=== PATIENT | female | born 1995 | race Hispanic/Latino ===

== ENCOUNTER 2019-10-04 16:35 | Emergency (ER) | payer OTHER ==
[~2019-10-04] VITALS: Ht 154.9 cm; Wt 76.7 kg
--- OUTSIDE RECORDS SUMMARY | 2019-10-04 16:37 | XMS REPORT | Summary of Care ---
Author Author CARLOS MILLER M.D. Organization Unknown Address [facility] Phone Unavailable Care Team Providers Care Parcel Post Officer Name Role Phone AMIRA NAGEL M.D. Unavailable Unavailable CARLOS MILLER M.D. Unavailable Unavailable EDUCATION, POST Unavailable Unavailable Unavailable Unavailable Functional Status Name Dates Details Functional status health issues are not documented Status: Name Dates Details Cognitive status health issues are not documented Status: Problems Name Dates Details Never smoked Status: Active History of Does not drink alcohol (V49.89, Z78.9) Status: Resolved Encounter for supervision of normal (V22.1, Z34.90) Status: Active History of delivery, currently (V23.41, O09.219) Status: Active (V22.2, Z34.90) Status: Active Late care (V23.7, O09.30) Status: Active Medications Name Dates Details Fluconazole 150 MG Oral Tablet TAKE 1 TABLET DAILY. Quantity: 7 AMIRA NAGEL M.D. * Start : 29-Dec-2014 Active CitraNatal 90 DHA 90-1 & 300 MG Oral TAKE 1 TABLET DAILY * Quantity: 90 Refills: 3 CARLOS MILLER M.D. * Start : 09-Jan-2018 Active Allergies and Adverse Reactions Name Dates Details No Known Allergies (Allergy) Status: Active Procedures Procedure Dates Details Procedures not documented Immunization Name Dates Details Immunizations not documented Social History Name Dates Details - Status: Name Dates Details Never smoker Never smoker Vital Signs Date Test Result Details No Known Vitals to report Results Date Description Value Details Results not documented Plan of Care Name Dates Details Planned Observations Planned Goals not documented Instructions Name Dates Details Instructions not documented Encounters Appointment; CARLOS MILLER M.D. Encounter Diagnosis: Problem not documented On: 09-Jan-2018 8:00 Appointment; TYPING SECTION CHIEF, COUNSELOR Encounter Diagnosis: Problem not documented On: 13-Jan-2018 9:00 Appointment; TYPING SECTION CHIEF, ROOM1 Encounter Diagnosis: Problem not documented On: 13-Jan-2018 10:00 Appointment; ASIA IVORY M.D. Encounter Diagnosis: Problem not documented On: 06-Feb-2018 15:15 Appointment; STEPHANIE MCCORMICK M.D. Encounter Diagnosis: Problem not documented On: 13-Feb-2018 15:15 Appointment; MANJINDER REYNOLDS M.D. Encounter Diagnosis: Problem not documented On: 01-Mar-2018 9:00 Appointment; EDUCATION, POST Encounter Diagnosis: Problem not documented On: 17-Apr-2018 11:00
--- OUTSIDE RECORDS SUMMARY | 2019-10-04 16:37 | XMS REPORT ---
Author Author [facility] Address Unknown Phone Unavailable Care Team Providers Care Highway Administrative Engineer Name Role Phone Unavailable Unavailable Payers Payer Name Policy Type Policy Number Effective Date Expiration Date Problems This patient has no known problems. Allergies, Adverse Reactions, Alerts Allergy Name Allergy Type Status Severity Reaction(s) Onset Date Inactive Date Treating Clinician Comments No Known Allergies DA Active U 2016-10-20 00:00:00 Medications This patient has no known medications.
[2019-10-04 17:55] VITALS: BP 120/61
[2019-10-05] MEDS ORDERED: DIAZEPAM INJ 5 MG/ML 2 ML ONE (04:59)
== END 2019-10-04 17:56 | disposition home or self-care (01) ==
LOC: FSED 16:35
DX: J03.00 Acute streptococcal tonsillitis, unspecified (principal)
CPT/HCPCS: 83518; 99283

== ENCOUNTER 2020-10-12 17:55 | Emergency (ER) | payer OTHER ==
[~2020-10-12] VITALS: Ht 154.9 cm; Wt 67.7 kg
--- NOTE | 2020-10-12 18:12 | Emergency Department Note ---
History of Present Illnes History of Present Illness Chief Complaint: Eye, Ear, Nose, Throat, Dental History of Present Illness This is a 24 year old female Chief Complaint Comment Reports that since last night she has had a headache that feels like pressure, swollen tonsils and feels like someone is sticking a needle through both ear drums. . Historian: Patient Arrival Mode: Car Onset (how long ago): day(s) (2) Location: SORE THROAT Quality: DULL Radiation: Denies non-radiation, Denies back, Denies neck, Denies extremity, Denies abdomen, Denies periumbilical, Denies flank, Denies proximal, Denies distal, Denies other Severity: mild Onset quality: gradual Duration (how long): day(s) (2) Timing of current episode: constant Progression: unchanged Chronicity: new Context: Denies recent illness, Denies recent surgery, Denies recent immobilization, Denies recent travel, Denies trauma/injury, Denies new medi cations, Denies hx of DVT/PE, Denies non-compliance w/ medications, Denies other Relieving factors: none Exacerbating factors: none Associated symptoms: Denies denies other symptoms, Denies confusion, Denies chest pain, Denies cough, Denies diaphoresis, Denies fever/chills, Denies headaches, Denies loss of appetite, Denies malaise, Denies nausea/vomiting, Denies rash, Denies seizure, Denies shortness of breath, Denies syncope, Denies weakness, Denies other Treatments prior to arrival: none Past Medical/Family History Physician Review I have reviewed the patient's past medical and family history. Any updates have been documented here. Past Medical History Recent Fever: No Clinical Suspicion of Infectio: No New/Unexplained Change in Ment: No Past Medical History: None Other Medical History: 30 WEEKS Past Surgical History: None Social History Smoking Cessation: Current some day smoker Counseling Performed: Yes Alcohol Use: None Any Illegal Drug Use: Yes Physically hurt or threatened: No Other Last Tetanus: UNKNOWN Any Pre-Existing Lines (PICC,: No Review of Systems Review of Systems Constitutional: Reports no symptoms EENTM: Reports as per HPI Cardiovascular: Reports no symptoms Respiratory: Reports no symptoms; Denies as per HPI, Denies change in phlegm color, Denies chest congestion, Denies cough, Denies hemoptysis, Denies excessive phlegm production, Denies pain on inspiration, Denies pain with cough, Denies dyspnea, Denies dyspnea on exertion, Denies snoring, Denies stridor, Denies wheezing, Denies other Gastrointestinal: Reports no symptoms Genitourinary: Reports no symptoms Musculoskeletal: Reports no symptoms; Denies as per HPI, Denies back pain, Denies gout, Denies joint pain, Denies joint swelling, Denies muscle pain, Denies muscle stiffness, Denies neck pain, Denies other Integumentary: Reports no symptoms Neurological: Reports no symptoms Psychological: Reports no symptoms Endocrine: Reports no symptoms Hematological/Lymphatic: Reports no symptoms Physical Exam Related Data Allergies: Coded Allergies: No Known Allergies (Unverified , 10/04/19) Triage Vital Signs Vital Signs Date Time Temp Pulse Resp B/P (MAP) Pulse Ox O2 Delivery O2 Flow Rate FiO2 10/12/20 18:00 98.1 80 16 112/76 100 Room Air Vital signs reviewed: Yes Physical Exam CONSTITUTIONAL Constitutional: Present well-developed, Present well-nourished HENT HENT: Present normocephalic, Present atraumatic, Present oropharynx clear/moist, Present nose normal, Present tonsillar excudate HENT L/R: Present left ext ear normal, Present right ext ear normal EYES Eyes: Reports PERRL, Reports conjunctivae normal NECK Neck: Present ROM normal PULMONARY Pulmonary: Present effort normal, Present breath sounds normal CARDIOVASCULAR Cardiovascular: Present regular rhythm, Present heart sounds normal, Present capillary refill normal, Present normal rate GASTROINTESTINAL Abdominal: Present soft, Present nontender, Present bowel sounds normal GENITOURINARY Genitourinary: Present exam deferred SKIN Skin: Present warm, Present dry MUSCULOSKELETAL Musculoskeletal: Present ROM normal NEUROLOGICAL Neurological: Present alert, Present oriented x 3, Present no gross motor or sensory deficits PSYCHOLOGICAL Psychological: Present mood/affect normal, Present judgement normal Results Laboratory Lab results reviewed: Yes Assessment & Plan Medical Decision Making MDM TONSILLITIS PHARYNGITIS Reassessment Reassessment BETTER Assessment & Plan Final Impression: (1) Acute tonsillitis (2) Acute pharyngitis Depart Disposition: HOME, SELF-CARE Last Vital Signs Date Time Temp Pulse Resp B/P (MAP) Pulse Ox O2 Delivery O2 Flow Rate FiO2 10/12/20 18:00 98.1 80 16 112/76 100 Room Air Home Meds Active Scripts Amoxicillin/Potassium Clav (AUGMENTIN 500-125 TABLET) 1 Each Tablet, 500 MG PO TID, #21 TAB Prov:SUDEEP ARIAS MD 10/12/20 SUDEEP ARIAS MD Oct 12, 2020 18:12
[2020-10-12] MEDS ORDERED: AUGMENTIN 500-1 EACH PO (18:14)
[2020-10-12] MEDS ORDERED: CEFTRIAXONE SOD 1 GM VIAL IM ONE (18:15)
--- OUTSIDE RECORDS SUMMARY | 2020-10-12 18:52 | XMS REPORT | Continuity of Care Document ---
Author Author [facility] t Organization [facility] Address [address] [place] [address] Phone Unavailable Care Team Providers Care Pneumatic Riveter Name Role Phone AYANA DHILLON MD PCP EDUCATION, POST Attphys Unavailable MANJINDER REYNOLDS M.D. Attphys Unavailable STEPHANIE MCCORMICK M.D. Attphys Unavailable ASIA IVORY M.D. Attphys Unavailable SCALER, ROOM1 Attphys Unavailable SCALER, COUNSELOR Attphys Unavailable CARLOS MILLER M.D. Attphys Unavailable Payers Payer Name Policy Type Policy Number Effective Date Expiration Date S ource Problems Condition Name Condition Details Condition Category Status Onset Date Resolution Date Last Treatment Date Treating Clinician Comments Source History of Does not drink alcohol History of Does not drink alcohol Problem HL7.CCDAR2 Resolved [facility] Never smoked Never smoked Problem HL7.CCDAR2 Active [facility] Problem HL7.CCDAR2 Active [facility] Encounter for supervision of normal Encounte r for supervision of normal Problem HL7.CCDAR2 Active [facility] History of delivery, currently Histor y of delivery, currently Problem HL7.CCDAR2 Active [facility] Late care Late care Problem HL7.CCDAR2 Active [facility] Allergies, Adverse Reactions, Alerts Allergy Name Allergy Type Status Severity Reaction(s) Onset Date Inacti ve Date Treating Clinician Comments Source No Known Allergies DA Active U 2020-02-17 00:00:00 [facility] No Known Allergies DA Active U 2020-02-10 00:00:00 [facility] No Known Allergies DA Active U 2016-10-20 00:00:00 [facility] Social History Smoking Status Start Date Stop Date Source Never smoker [facility] Medications Ordered Medication Name Filled Medication Name Start Date Stop Da te Current Medication? Ordering Clinician Indication Dosage Frequency Signature (SIG) Comments Components Source CitraNatal 90 DHA 90-1 & 300 MG Oral CitraNatal 90 DHA 90-1 & 300 MG Oral 2018-01-09 00:00:00 Yes CARLOS MILLER M.D. 1 QD TAKE 1 TA BLET DAILY [facility] Fluconazole 150 MG Oral Tablet Fluconazole 150 MG Oral Table t 2014-12-29 00:00:00 Yes AMIRA NAGEL M.D. 1 QD TAKE 1 TABLET DA VANCE. [facility] Vital Signs Vital Name Observation Time Observation Value Comments Source BP Systolic 2018-03-01 09:53:00 138 mm[Hg] Location: RUE; Positi on: Sitting [facility] BP Diastolic 2018-03-01 09:53:00 85 mm[Hg] Location: RUE; Positi on: Sitting [facility] Height 2018-03-01 09:53:00 61 [in_us] [facility] Weight 2018-03-01 09:53:00 178 [lb_av] [facility] Body Mass Index Calculated 2018-03-01 09:53:00 33.63 kg/m2 [facility] Temperature 2018-03-01 09:53:00 98.2 [degF] Method: Oral [facility] Heart Rate 2018-03-01 09:53:00 66 /min [facility] BP Systolic 2018-02-06 15:33:00 120 mm[Hg] Location: RUE; Positi on: Sitting [facility] BP Diastolic 2018-02-06 15:33:00 75 mm[Hg] Location: RUE; Positi on: Sitting [facility] Height 2018-02-06 15:33:00 61 [in_us] [facility] Weight 2018-02-06 15:33:00 173 [lb_av] [facility] Body Mass Index Calculated 2018-02-06 15:33:00 32.69 kg/m2 [facility] Heart Rate 2018-02-06 15:33:00 66 /min [facility] BP Systolic 2018-01-09 09:07:00 103 mm[Hg] Location: RUE; Positi on: Sitting [facility] BP Diastolic 2018-01-09 09:07:00 66 mm[Hg] Location: RUE; Positi on: Sitting [facility] Height 2018-01-09 09:07:00 61 [in_us] [facility] Weight 2018-01-09 09:07:00 162.25 [lb_av] [facility] Body Mass Index Calculated 2018-01-09 09:07:00 30.66 kg/m2 [facility] Procedures Procedure Date / Time Performed Performing Clinician Sour e [QH] STREPTOCOCCUS, GROUP B CULTURE (Genital Strep Screen) 2 00:00:00 [facility] [H] Hemoglobin Electrophoresis and Interpretation 2018-02-06 00: 00:00 [facility] [Q] HIV AB, HIV 1/2, EIA, WITH REFLEXES 2018-02-06 00:00:00 [facility] [[facility]] CBC (INCLUDES DIFF/PLT) 2018-02-06 00:00:00 [facility] [[facility]] RPR 2018-02-06 00:00:00 [facility] [H] Drug Screen Urine (9 Drugs) 2018-02-06 00:00:00 [facility] [[facility]] CULTURE, URINE, ROUTINE 2018-02-06 00:00:00 [facility] [[facility]] URINALYSIS, COMPLETE 2018-02-06 00:00:00 [facility] . [facility] - GC/Chlamydia 2018-02-06 00:00:00 [facility] . [facility] - PAP w/reflex HPV 2018-01-09 00:00:00 [facility] . [facility] - Affirm VPIII (BV Panel) 2018-01-09 00:00:00 [facility] Encounters Start Date/Time End Date/Time Encounter Type Admission Type [facility] Care Department Encounter ID Source 2019-12-03 07:49:00 Inpatient [facility]SE [id number] [facility] 2019-10-04 16:35:00 2019-10-04 17:56:00 Departed Emergency Room [facility] [id number] [facility] 2018-04-17 11:00:00 2018-04-17 11:00:00 Appointment; EDUCATION, POS T EDUCATION, POST [facility] Claims Associate [id number] [facility] 2018-03-01 09:00:00 2018-03-01 09:00:00 Appointment; MANJINDER REYNOLDS M. D. AGU, SYBIL, M.D. [facility] Claims Associate [id number] [facility] 2018-02-13 15:15:00 2018-02-13 15:15:00 Appointment; ABHISHEK MCCORMICK M.D. NOURIEL, ARIELA, M.D. [facility] [id number] [facility] 2018-02-06 15:15:00 2018-02-06 15:15:00 Appointment; ASIA IVORY M.D. VELASQUEZ, CHELSEA, M.D. [facility] Claims Associate [id number] [facility] 2018-01-13 10:00:00 2018-01-13 10:00:00 Appointment; SCALER, ROOM1 SCALER, ROOM1 [facility] [id number] [facility] 2018-01-13 09:00:00 2018-01-13 09:00:00 Appointment; SCALER, COUNSE ALBA SCALER, COUNSELOR [facility] [id number] [facility] 2018-01-09 08:00:00 2018-01-09 08:00:00 Appointment; CARLOS MILLER M .D. AMRO, FARAH, M.D. [facility] Claims Associate [id number] [facility] Results Test Description Test Time Test Comments Results Result Comments Source URINALYSIS COMPLETE 2020-02-17 21:03:00 Test Item UA COLOR (test code = COLU) YELLOW YELLOW UA APPEARANCE (test code = APPU) CLEAR CLEAR UA GLUCOSE DIPSTICK (test code = DGLUU) NEGATIVE mg/dL NEGATIVE UA BILIRUBIN DIPSTICK (test code = BILU) NEGATIVE mg/dL NEGATIVE UA KETONE DIPSTICK (test code = KETU) NEGATIVE mg/dL NEGATIVE UA SPECIFIC GRAVITY (test code = SGU) 1.023 1.001-1.035 UA BLOOD DIPSTICK (test code = MOOKIE) Negative mg/dL NEGATIVE UA PH DIPSTICK (test code = NINA) 5.5 5.0-8.0 UA PROTEIN DIPSTICK (test code = PROU) 20 (Trace) mg/dL NEGATIVE A UA UROBILINIOGEN DIPSTICK (test code = URO) Normal mg/dL NEGATIVE UA NITRITE DIPSTICK (test code = ALEX) NEGATIVE NEGATIVE UA LEUKOCYTE ESTERASE W REFLEX (test code = LEUUR) NEGATIVE Rima/uL NEGATIVE UA WBC (test code = WBCU) 0-5 per HPF 0-5 UA RBC (test code = RBCU) 0-2 #/HPF 0-5 UA EPITHELIAL CELLS (test code = EPIU) FEW per HPF FEW UA BACTERIA (test code = BACU) FEW #/HPF NONE A UA MUCUS (test code = MUCU) FEW #/LPF FEW Urine Source? Clean CatchDRUGS OF ABUSE SCREEN [id number] 21:03:00* Test Item Value Reference Range Interpretation Comments URN COCAINE (test code = COCAURN) POSITIVE <300 ng/mL A This test provides only a preliminary test result. A morespecific alternate chemical method must be used in order toobtain a confirmed analytical result. Gas chromatography/mass spectrometry (GC/MS) is thepreferred confirmatory method. Other chemical confirmationmethods are available. Clinical consideration and professional judgment should be applied to any drug of abusetest result, particularly when preliminary positive resultsare used.Unconfirmed screening results must not be used fornon-medical purposes (e.g., employment testing, legaltesting). URN CANNABINOIDS (test code = CANNABURN) NEGATIVE <50 ng/mL URN AMPHETAMINE (test code = AMPHETURN) NEGATIVE <1000 ng/mL URN BARBITURATE (test code = BARBITURN) NEGATIVE <200 ng/mL URN BENZODIAZEPINE (test code = BENZOURN) NEGATIVE <200 ng/mL URN OPIATES (test code = OPIATURN) NEGATIVE <300 ng/mL URN PHENCYCLIDINE (PCP) (test code = PHENCURN) NEGATIVE <25 ng/ mL URN METHADONE (test code = METHAURN) NEGATIVE <300 ng/mL Urine Source? Clean CatchBASIC METABOLIC [id number] 20:46:00* Test Item Value Reference Range Interpretation Comments SODIUM (test code = NA) 144 mmol/L 136-145 N POTASSIUM (test code = K) 3.7 mmol/L 3.5-5.1 N CHLORIDE (test code = CL) 107.0 mmol/L 98-107 N CARBON DIOXIDE (test code = CO2) 24.0 mmol/L 21-32 N ANION GAP (test code = GAP) 16.7 10-20 N GLUCOSE (test code = GLU) 115 mg/dL 74-106 H BLOOD UREA NITROGEN (test code = BUN) 12 mg/dL 7-18 N GLOMERULAR FILTRATION RATE (test code = GFR) > 60 mL/min >=60 Estimated GFR by using Modified MDRD formula.Chronic kidney disease is defined as either kidney damageor GFR <60 mL/min/1.73 m2 for >3 months. CREATININE (test code = CREAT) 0.70 mg/dL 0.55-1.02 N Note change in reference range due to change in reagent. BUN/CREATININE RATIO (test code = BUN/CREA) 17.1 10-20 N CALCIUM (test code = CA) 8.7 mg/dL 8.5-10.1 N HEPATIC FUNCTION [id number] 20:46:00* Test Item Value Reference Range Interpretation Comments TOTAL PROTEIN (test code = PROT) 8.5 gram/dL 6.4-8.2 H ALBUMIN (test code = ALB) 4.3 g/dL 3.4-5.0 N GLOBULIN (test code = GLOB) 4.2 gram/dL 2.7-4.2 N ALBUMIN/GLOBULIN RATIO (test code = A/G) 1.0 0.75-1.50 N BILIRUBIN TOTAL (test code = BILT) 0.60 mg/dL 0.0-1.0 N BILIRUBIN DIRECT (test code = BILD) 0.17 mg/dL 0.0-0.20 N SGOT/AST (test code = AST) 15 IUnit/L 15-37 N SGPT/ALT (test code = ALT) 28 IUnit/L 12-78 N ALKALINE PHOSPHATASE TOTAL (test code = ALKP) 94 IUnit/L 45-117 N Note change in reference range due to change in reagent. HCG SERUM [id number] 20:46:00* Test Item Value Reference Range Interpretation Comments HCG SERUM QUAL (test code = HCGQL) NEGATIVE NEGATIVE This HCGQL test is NOT applicable for MALE patients.Check with nurse about probable order error.If Tumor Marker Test needed, nurse should order test "HCGTU"(Test #550.56793) [id number] 20:46:00* Test Item Value Reference Range Interpretation Comments TROPONIN-I (test code = TROPI) <0.015 ng/mL 0-0.045 N URINALYSIS [id number] 20:42:00* Test Item Value Reference Range Interpretation Comments UA COLOR (test code = COLU) YELLOW YELLOW UA APPEARANCE (test code = APPU) CLEAR CLEAR UA GLUCOSE DIPSTICK (test code = DGLUU) NEGATIVE mg/dL NEGATIVE UA BILIRUBIN DIPSTICK (test code = BILU) NEGATIVE mg/dL NEGATIVE UA KETONE DIPSTICK (test code = KETU) NEGATIVE mg/dL NEGATIVE UA SPECIFIC GRAVITY (test code = SGU) 1.023 1.001-1.035 UA BLOOD DIPSTICK (test code = MOOKIE) Negative mg/dL NEGATIVE UA PH DIPSTICK (test code = NINA) 5.5 5.0-8.0 UA PROTEIN DIPSTICK (test code = PROU) 20 (Trace) mg/dL NEGATIVE A UA UROBILINIOGEN DIPSTICK (test code = URO) Normal mg/dL NEGATIVE UA NITRITE DIPSTICK (test code = ALEX) NEGATIVE NEGATIVE UA LEUKOCYTE ESTERASE W REFLEX (test code = LEUUR) NEGATIVE Rima/uL NEGATIVE UA WBC (test code = WBCU) 0-5 per HPF 0-5 UA RBC (test code = RBCU) 0-2 #/HPF 0-5 UA EPITHELIAL CELLS (test code = EPIU) FEW per HPF FEW UA BACTERIA (test code = BACU) FEW #/HPF NONE A UA MUCUS (test code = MUCU) FEW #/LPF FEW Urine Source? Clean CatchDRUGS OF ABUSE SCREEN [id number] 20:42:00* Test Item Value Reference Range Interpretation Comments URN COCAINE (test code = COCAURN) <300 ng/mL URN CANNABINOIDS (test code = CANNABURN) <50 ng/mL URN AMPHETAMINE (test code = AMPHETURN) <1000 ng/mL URN BARBITURATE (test code = BARBITURN) <200 ng/mL URN BENZODIAZEPINE (test code = BENZOURN) <200 ng/mL URN OPIATES (test code = OPIATURN) <300 ng/mL URN PHENCYCLIDINE (PCP) (test code = PHENCURN) <25 ng/ mL URN METHADONE (test code = METHAURN) <300 ng/mL Urine Source? Clean CatchURINALYSIS [id number] 20:41:00* Test Item Value Reference Range Interpretation Comments UA COLOR (test code = COLU) YELLOW YELLOW UA APPEARANCE (test code = APPU) CLEAR CLEAR UA GLUCOSE DIPSTICK (test code = DGLUU) NEGATIVE mg/dL NEGATIVE UA BILIRUBIN DIPSTICK (test code = BILU) NEGATIVE mg/dL NEGATIVE UA KETONE DIPSTICK (test code = KETU) NEGATIVE mg/dL NEGATIVE UA SPECIFIC GRAVITY (test code = SGU) 1.023 1.001-1.035 UA BLOOD DIPSTICK (test code = MOOKIE) Negative mg/dL NEGATIVE UA PH DIPSTICK (test code = NINA) 5.5 5.0-8.0 UA PROTEIN DIPSTICK (test code = PROU) 20 (Trace) mg/dL NEGATIVE A UA UROBILINIOGEN DIPSTICK (test code = URO) Normal mg/dL NEGATIVE UA NITRITE DIPSTICK (test code = ALEX) NEGATIVE NEGATIVE UA LEUKOCYTE ESTERASE W REFLEX (test code = LEUUR) NEGATIVE Rima/uL NEGATIVE UA WBC (test code = WBCU) per HPF 0-5 UA RBC (test code = RBCU) per HPF 0-5 UA EPITHELIAL CELLS (test code = EPIU) per HPF Few UA BACTERIA (test code = BACU) per HPF NONE Urine Source? Clean CatchDRUGS OF ABUSE SCREEN [id number] 20:41:00* Test Item Value Reference Range Interpretation Comments URN COCAINE (test code = COCAURN) <300 ng/mL URN CANNABINOIDS (test code = CANNABURN) <50 ng/mL URN AMPHETAMINE (test code = AMPHETURN) <1000 ng/mL URN BARBITURATE (test code = BARBITURN) <200 ng/mL URN BENZODIAZEPINE (test code = BENZOURN) <200 ng/mL URN OPIATES (test code = OPIATURN) <300 ng/mL URN PHENCYCLIDINE (PCP) (test code = PHENCURN) <25 ng/ mL URN METHADONE (test code = METHAURN) <300 ng/mL Urine Source? Clean CatchBASIC METABOLIC [id number] 20:38:00* Test Item Value Reference Range Interpretation Comments SODIUM (test code = NA) 144 mmol/L 136-145 N POTASSIUM (test code = K) 3.7 mmol/L 3.5-5.1 N CHLORIDE (test code = CL) 107.0 mmol/L 98-107 N CARBON DIOXIDE (test code = CO2) mmol/L 21-32 ANION GAP (test code = GAP) 10-20 GLUCOSE (test code = GLU) mg/dL 74-106 BLOOD UREA NITROGEN (test code = BUN) mg/dL 7-18 GLOMERULAR FILTRATION RATE (test code = GFR) mL/min >=60 CREATININE (test code = CREAT) mg/dL 0.55-1.02 BUN/CREATININE RATIO (test code = BUN/CREA) 10-20 CALCIUM (test code = CA) mg/dL 8.5-10.1 HEPATIC FUNCTION [id number] 20:38:00* Test Item Value Reference Range Interpretation Comments TOTAL PROTEIN (test code = PROT) gram/dL 6.4-8.2 ALBUMIN (test code = ALB) g/dL 3.4-5.0 GLOBULIN (test code = GLOB) gram/dL 2.7-4.2 ALBUMIN/GLOBULIN RATIO (test code = A/G) 0.75-1.50 BILIRUBIN TOTAL (test code = BILT) mg/dL 0.0-1.0 BILIRUBIN DIRECT (test code = BILD) mg/dL 0.0-0.20 SGOT/AST (test code = AST) IUnit/L 15-37 SGPT/ALT (test code = ALT) IUnit/L 12-78 ALKALINE PHOSPHATASE TOTAL (test code = ALKP) IUnit/L 45-117 HCG SERUM [id number] 20:38:00* Test Item Value Reference Range Interpretation Comments HCG SERUM QUAL (test code = HCGQL) NEGATIVE NEGATIVE This HCGQL test is NOT applicable for MALE patients.Check with nurse about probable order error.If Tumor Marker Test needed, nurse should order test "HCGTU"(Test #550.92009) [id number] 20:38:00* Test Item Value Reference Range Interpretation Comments TROPONIN-I (test code = TROPI) ng/mL 0-0.045 - XR CHEST 1 [id number] 20:38:00 FAX: Ayana Crowder MD [phone] [place]: St: [facility] FAX: Jorge Luis Fuller MD Name: YOSELIN ALSTON [facility] : 1995 Age/S: 24/F [address] [facility] Unit #: [id number] Loc: [place] [address] Phys: Jorge Luis Fuller MD Acct: [id number] Dis Date: Status: REG ER PHONE #: [phone] Exam Date: 02/17/20202019 FAX #: [phone] Reason: CHEST PAIN EXAMS: CPT CODE: [id number] XR CHEST 1 V 65045 HISTORY: CHEST PAIN TECHNIQUE: AP chest x-ray COMPARISON: 02/10/20 FINDINGS: No airspace consolidation or pleural effusion. Normal heart size. Mediastinal silhouet te is unremarkable. Visualized osseous structures are grossly intact. IMPRESSION: No radiographic evidence of acute card iopulmonary process. LOCATION: at 2038 Reported and signed by: Dorina Del Cid D.O. CC : Ayana Dhillon MD; Jorge Luis Fuller MD Technologist: Susan mcclendon RT(R) Trnscrd Date/Time/By: 02/17/2020 (2037) : By: [email or web address] Orig Print D/T: S: 02/17/2020 (2040) PAGE 1 Signed Report CBC W/O [id number] 20:36:00* Test Item Value Reference Range Interpretation Comments WHITE BLOOD CELL (test code = WBC) 10.8 K/mm3 4.5-12.5 N RED BLOOD CELL (test code = RBC) 4.86 mill/mm3 3.7-5.2 N HEMOGLOBIN (test code = HGB) 13.1 gram/dL 11.5-15.5 N HEMATOCRIT (test code = HCT) 39.8 % 36.0-46.0 N MEAN CELL VOLUME (test code = MCV) 81.9 fL 80-98 N MEAN CELL HGB (test code = MCH) 27.0 picogram 27.0-33.0 N MEAN CELL HGB CONCETRATION (test code = MCHC) 32.9 gram/dL 33.0-36. 0 L RED CELL DISTRIBUTION WIDTH (test code = RDW) 18.0 % 11.6-16. 2 H PLATELET COUNT (test code = PLT) 446 K/mm3 150-450 N MEAN PLATELET VOLUME (test code = MPV) 10.5 fL 6.7-11.0 N BASIC METABOLIC [id number] 20:35:00* Test Item Value Reference Range Interpretation Comments SODIUM (test code = NA) mmol/L 136-145 POTASSIUM (test code = K) mmol/L 3.5-5.1 CHLORIDE (test code = CL) mmol/L 98-107 CARBON DIOXIDE (test code = CO2) mmol/L 21-32 ANION GAP (test code = GAP) 10-20 GLUCOSE (test code = GLU) mg/dL 74-106 BLOOD UREA NITROGEN (test code = BUN) mg/dL 7-18 GLOMERULAR FILTRATION RATE (test code = GFR) mL/min >=60 CREATININE (test code = CREAT) mg/dL 0.55-1.02 BUN/CREATININE RATIO (test code = BUN/CREA) 10-20 CALCIUM (test code = CA) mg/dL 8.5-10.1 HEPATIC FUNCTION [id number] 20:35:00* Test Item Value Reference Range Interpretation Comments TOTAL PROTEIN (test code = PROT) gram/dL 6.4-8.2 ALBUMIN (test code = ALB) g/dL 3.4-5.0 GLOBULIN (test code = GLOB) gram/dL 2.7-4.2 ALBUMIN/GLOBULIN RATIO (test code = A/G) 0.75-1.50 BILIRUBIN TOTAL (test code = BILT) mg/dL 0.0-1.0 BILIRUBIN DIRECT (test code = BILD) mg/dL 0.0-0.20 SGOT/AST (test code = AST) IUnit/L 15-37 SGPT/ALT (test code = ALT) IUnit/L 12-78 ALKALINE PHOSPHATASE TOTAL (test code = ALKP) IUnit/L 45-117 HCG SERUM [id number] 20:35:00* Test Item Value Reference Range Interpretation Comments HCG SERUM QUAL (test code = HCGQL) NEGATIVE NEGATIVE This HCGQL test is NOT applicable for MALE patients.Check with nurse about probable order error.If Tumor Marker Test needed, nurse should order test "HCGTU"(Test #550.53453) [id number] 20:35:00* Test Item Value Reference Range Interpretation Comments TROPONIN-I (test code = TROPI) ng/mL 0-0.045 CBC W/O [id number] 20:34:00* Test Item Value Reference Range Interpretation Comments WHITE BLOOD CELL (test code = WBC) K/mm3 4.5-12.5 RED BLOOD CELL (test code = RBC) mill/mm3 3.7-5.2 HEMOGLOBIN (test code = HGB) 13.1 gram/dL 11.5-15.5 N HEMATOCRIT (test code = HCT) 39.8 % 36.0-46.0 N MEAN CELL VOLUME (test code = MCV) fL 80-98 MEAN CELL HGB (test code = MCH) picogram 27.0-33.0 MEAN CELL HGB CONCETRATION (test code = MCHC) gram/dL 33.0-36. 0 RED CELL DISTRIBUTION WIDTH (test code = RDW) % 11.6-16. 2 PLATELET COUNT (test code = PLT) K/mm3 150-450 MEAN PLATELET VOLUME (test code = MPV) fL 6.7-11.0 [id number] 05:49:00* Test Item Value Reference Range Interpretation Comments TROPONIN-I (test code = TROPI) <0.015 ng/mL 0-0.045 N BASIC METABOLIC [id number] 03:54:00* Test Item Value Reference Range Interpretation Comments SODIUM (test code = NA) 139 mmol/L 136-145 N POTASSIUM (test code = K) 3.9 mmol/L 3.5-5.1 N CHLORIDE (test code = CL) 107.0 mmol/L 98-107 N CARBON DIOXIDE (test code = CO2) 25.0 mmol/L 21-32 N ANION GAP (test code = GAP) 10.9 10-20 N GLUCOSE (test code = GLU) 85 mg/dL 74-106 N BLOOD UREA NITROGEN (test code = BUN) 9 mg/dL 7-18 N GLOMERULAR FILTRATION RATE (test code = GFR) > 60 mL/min >=60 Estimated GFR by using Modified MDRD formula.Chronic kidney disease is defined as either kidney damageor GFR <60 mL/min/1.73 m2 for >3 months. CREATININE (test code = CREAT) 0.70 mg/dL 0.55-1.02 N Note change in reference range due to change in reagent. BUN/CREATININE RATIO (test code = BUN/CREA) 12.9 10-20 N CALCIUM (test code = CA) 9.0 mg/dL 8.5-10.1 N LIPID PROFILE (CORONARY RISK)2020-02-11 03:54:00* Test Item Value Reference Range Interpretation Comments TRIGLYCERIDES (test code = TRIG) 92 mg/dL 20-150 N CHOLESTEROL (test code = CHOL) 115 mg/dL 0-200 N CHOLESTEROL/HDL RATIO (test code = CHOLHDL) 2.0 RATIO 0-4.9 N RISK ASSOCIATED WITH CHOL/HDL RATIOS: Risk Male Female1/2 AVERAGE 3.43 3.27AVERAGE 4.97 4.442X AVERAGE 9.55 7.053X AVERAGE 23.39 11.04 REFERENCE VALUE IS RELATED TO RISK LEVELS ASRECOMMENDED BY THE JAMAAL. HEART, LUNG, AND BLOOD INST. HDL CHOLESTEROL (test code = HDL) 57 mg/dL 40-60 N LIPOPROTEIN LDL (test code = LDL) 53 mg/dL 100-129 L Reference Interval: mg/dL mmol/L Optimal <100 <2.6Near/above optimal 100-129 2.6- 3.3Borderline High 130-159 3.4-4.1High 160-189 4.1-4.9Very High >=190 >=4.9========= This LDL result is a direct measurement.========= [id number] 03:54:00* Test Item Value Reference Range Interpretation Comments MAGNESIUM (test code = MAG) 1.9 mg/dL 1.8-2.4 N THYROID STIMULATING [id number] 03:54:00* Test Item Value Reference Range Interpretation Comments THYROID STIMULATING HORMONE (test code = TSH) 1.030 uIU/mL 0.36-3.7 4 N TSH REFERENCE RANGES: EUTHYROID: 0.35 - 4.3 mIU/mL HYPO : > 5.5 mIU/mL HYPER : < 0.35 mIU/mL [id number] 03:54:00* Test Item Value Reference Range Interpretation Comments TROPONIN-I (test code = TROPI) <0.015 ng/mL 0-0.045 N BASIC METABOLIC [id number] 03:33:00* Test Item Value Reference Range Interpretation Comments SODIUM (test code = NA) 139 mmol/L 136-145 N POTASSIUM (test code = K) 3.9 mmol/L 3.5-5.1 N CHLORIDE (test code = CL) 107.0 mmol/L 98-107 N CARBON DIOXIDE (test code = CO2) mmol/L 21-32 ANION GAP (test code = GAP) 10-20 GLUCOSE (test code = GLU) mg/dL 74-106 BLOOD UREA NITROGEN (test code = BUN) mg/dL 7-18 GLOMERULAR FILTRATION RATE (test code = GFR) mL/min >=60 CREATININE (test code = CREAT) mg/dL 0.55-1.02 BUN/CREATININE RATIO (test code = BUN/CREA) 10-20 CALCIUM (test code = CA) mg/dL 8.5-10.1 LIPID PROFILE (CORONARY RISK)2020-02-11 03:33:00* Test Item Value Reference Range Interpretation Comments TRIGLYCERIDES (test code = TRIG) mg/dL 20-150 CHOLESTEROL (test code = CHOL) mg/dL 0-200 CHOLESTEROL/HDL RATIO (test code = CHOLHDL) RATIO 0-4.9 HDL CHOLESTEROL (test code = HDL) mg/dL 40-60 LIPOPROTEIN LDL (test code = LDL) mg/dL 100-129 [id number] 03:33:00* Test Item Value Reference Range Interpretation Comments MAGNESIUM (test code = MAG) mg/dL 1.8-2.4 THYROID STIMULATING [id number] 03:33:00* Test Item Value Reference Range Interpretation Comments THYROID STIMULATING HORMONE (test code = TSH) uIU/mL 0.36-3.7 4 [id number] 03:33:00* Test Item Value Reference Range Interpretation Comments TROPONIN-I (test code = TROPI) ng/mL 0-0.045 CBC W/AUTO [id number] 03:17:00* Test Item Value Reference Range Interpretation Comments WHITE BLOOD CELL (test code = WBC) 13.7 K/mm3 4.5-12.5 H RED BLOOD CELL (test code = RBC) 4.21 mill/mm3 3.7-5.2 N HEMOGLOBIN (test code = HGB) 11.0 gram/dL 11.5-15.5 L HEMATOCRIT (test code = HCT) 34.7 % 36.0-46.0 L MEAN CELL VOLUME (test code = MCV) 82.4 fL 80-98 N MEAN CELL HGB (test code = MCH) 26.1 picogram 27.0-33.0 L MEAN CELL HGB CONCETRATION (test code = MCHC) 31.7 gram/dL 33.0-36. 0 L RED CELL DISTRIBUTION WIDTH (test code = RDW) 19.0 % 11.6-16. 2 H RED CELL DISTRIBUTION WIDTH SD (test code = RDW-SD) 56.4 fL 37 .0-51.0 H PLATELET COUNT (test code = PLT) 364 K/mm3 150-450 N MEAN PLATELET VOLUME (test code = MPV) 10.2 fL 6.7-11.0 N NEUTROPHIL % (test code = NT%) 70.4 % 39.0-69.0 H IMMATURE GRANULOCYTE % (test code = IG%) 0.3 % 0.0-5.0 N LYMPHOCYTE % (test code = LY%) 23.3 % 25.0-55.0 L MONOCYTE % (test code = MO%) 4.7 % 0.0-10.0 N EOSINOPHIL % (test code = EO%) 0.9 % 0.0-5.0 N BASOPHIL % (test code = BA%) 0.4 % 0.0-1.0 N NUCLEATED RBC % (test code = NRBC%) 0.0 % 0-0 N NEUTROPHIL # (test code = NT#) 9.64 K/mm3 1.8-7.7 H IMMATURE GRANULOCYTE # (test code = IG#) 0.04 x10 3/uL 0-0.03 H LYMPHOCYTE # (test code = LY#) 3.18 K/mm3 1.0-5.0 N MONOCYTE # (test code = MO#) 0.64 K/mm3 0-0.8 N EOSINOPHIL # (test code = EO#) 0.12 K/mm3 0.0-0.5 N BASOPHIL # (test code = BA#) 0.05 K/mm3 0.0-0.2 N NUCLEATED RBC # (test code = NRBC#) 0.00 K/mm3 0.0-0.1 N PROTHROMBIN [id number] 03:16:00* Test Item Value Reference Range Interpretation Comments PROTHROMBIN TIME PATIENT (test code = PTP) 12.5 seconds 9.0-14.0 N INTERNATIONAL NORMAL RATIO (test code = INR) 1.1 0.8-1.2 N The therapeutic range for oral anticoagulant therapy formost indications is an international normalized ratio (INR)of between 2.0 and 3.0. The recommended therapeutic INRrange for various clinical situations is listed below: Clinical Situation INR range Pulmonary e mbolism treatment (2.0-3.0)Venous thrombosis treatmentVenous thrombosis prophylaxis (high risk surgery)Prevention of systemic embolism from: Acute myocardial infarction Valvular heart disease Atrial fibrillation Mechanical prosthetic heart valves (2.5-3.5) IS PATIENT ON ANTICOAGULANTS? NTHROMBOPLASTIN TIME [id number] 03:16:00* Test Item Value Reference Range Interpretation Comments THROMBOPLASTIN TIME PARTIAL (test code = PTT) 29.9 seconds 25.0-36. 5 N IS PATIENT ON ANTICOAGULANTS? N- XR CHEST 1 [id number] 23:55:00 FAX: Ayana Crowder MD [phone] [place]: [address] St: REG FAX: Rashida Calero NP FAX: Jorge Luis Fuller MD --------- Name: YOSELIN ALSTON [facility] : 1995 Age/S: 24/F Quiana Tran farheen it #: [id number] Loc: [place] [address] Phys: Rashida Calero NP Acct: [id number] Dis Date: Status: REG [facility] ONE #: [phone] Exam Date: 02/10/2020 234 FAX #: [phone] Reason: CHest pain EXAMS: CPT CODE: [id number] XR CHEST 1 V 41169 EXAM: - XR CH EST 1 V HISTORY: Chest pain. COMPARISON: None availa ble time of interpretation. FINDINGS: Single AP view of the chest is provided. Heart size and vascularity are within normal li mits. Hypoinflation of the lungs. Right hemidiaphragm is elevated with associated trace right basilar atelectasis. No definite consolidation, pleural effusion, pneumothorax, or acute osseous abnormality. Over lying artifacts are present. IMPRESSION: No consolidatio n or pleural effusion. at 3875 Reported and signed by: Luis M Giang MD CC: Ayana Dhillon MD; Rashida Calero NP; Jorge Luis Fuller MD Technologist: Sowmya Cardona Trnscr d Date/Time/By: 02/10/2020 (4002) : By: [email or web address] Orig Print D/T: S: 0 02/10/2020 (3277) PAGE 1 Signed Re port [id number] 21:43:00* Test Item Value Reference Range Interpretation Comments TROPONIN-I (test code = TROPI) <0.015 ng/mL 0-0.045 N URINALYSIS [id number] 21:38:00* Test Item Value Reference Range Interpretation Comments UA COLOR (test code = COLU) Light-Yellow YELLOW UA APPEARANCE (test code = APPU) CLEAR CLEAR UA GLUCOSE DIPSTICK (test code = DGLUU) NEGATIVE mg/dL NEGATIVE UA BILIRUBIN DIPSTICK (test code = BILU) NEGATIVE mg/dL NEGATIVE UA KETONE DIPSTICK (test code = KETU) TRACE mg/dL NEGATIVE A UA SPECIFIC GRAVITY (test code = SGU) 1.013 1.001-1.035 UA BLOOD DIPSTICK (test code = MOOKIE) Negative mg/dL NEGATIVE UA PH DIPSTICK (test code = NINA) 5.5 5.0-8.0 UA PROTEIN DIPSTICK (test code = PROU) 10 (Trace) mg/dL NEGATIVE A UA UROBILINIOGEN DIPSTICK (test code = URO) Normal mg/dL NEGATIVE UA NITRITE DIPSTICK (test code = ALEX) NEGATIVE NEGATIVE UA LEUKOCYTE ESTERASE W REFLEX (test code = LEUUR) NEGATIVE Rima/uL NEGATIVE UA WBC (test code = WBCU) 0-5 per HPF 0-5 UA RBC (test code = RBCU) 0-2 #/HPF 0-5 UA EPITHELIAL CELLS (test code = EPIU) FEW per HPF FEW UA BACTERIA (test code = BACU) NONE SEEN #/HPF NONE UA HYALINE CAST (test code = HYALU) 11-20 #/LPF 0-5 A UA MUCUS (test code = MUCU) FEW #/LPF FEW Urine Source? Clean CatchDRUGS OF ABUSE SCREEN [id number] 21:38:00* Test Item Value Reference Range Interpretation Comments URN COCAINE (test code = COCAURN) POSITIVE <300 ng/mL A This test provides only a preliminary test result. A morespecific alternate chemical method must be used in order toobtain a confirmed analytical result. Gas chromatography/mass spectrometry (GC/MS) is thepreferred confirmatory method. Other chemical confirmationmethods are available. Clinical consideration and professional judgment should be applied to any drug of abusetest result, particularly when preliminary positive resultsare used.Unconfirmed screening results must not be used fornon-medical purposes (e.g., employment testing, legaltesting). URN CANNABINOIDS (test code = CANNABURN) NEGATIVE <50 ng/mL URN AMPHETAMINE (test code = AMPHETURN) NEGATIVE <1000 ng/mL URN BARBITURATE (test code = BARBITURN) NEGATIVE <200 ng/mL URN BENZODIAZEPINE (test code = BENZOURN) NEGATIVE <200 ng/mL URN OPIATES (test code = OPIATURN) NEGATIVE <300 ng/mL URN PHENCYCLIDINE (PCP) (test code = PHENCURN) NEGATIVE <25 ng/ mL URN METHADONE (test code = METHAURN) NEGATIVE <300 ng/mL Urine Source? Clean CatchURINALYSIS [id number] 21:23:00* Test Item Value Reference Range Interpretation Comments UA COLOR (test code = COLU) Light-Yellow YELLOW UA APPEARANCE (test code = APPU) CLEAR CLEAR UA GLUCOSE DIPSTICK (test code = DGLUU) NEGATIVE mg/dL NEGATIVE UA BILIRUBIN DIPSTICK (test code = BILU) NEGATIVE mg/dL NEGATIVE UA KETONE DIPSTICK (test code = KETU) TRACE mg/dL NEGATIVE A UA SPECIFIC GRAVITY (test code = SGU) 1.013 1.001-1.035 UA BLOOD DIPSTICK (test code = MOOKIE) Negative mg/dL NEGATIVE UA PH DIPSTICK (test code = NINA) 5.5 5.0-8.0 UA PROTEIN DIPSTICK (test code = PROU) 10 (Trace) mg/dL NEGATIVE A UA UROBILINIOGEN DIPSTICK (test code = URO) Normal mg/dL NEGATIVE UA NITRITE DIPSTICK (test code = ALEX) NEGATIVE NEGATIVE UA LEUKOCYTE ESTERASE W REFLEX (test code = LEUUR) NEGATIVE Rima/uL NEGATIVE UA WBC (test code = WBCU) 0-5 per HPF 0-5 UA RBC (test code = RBCU) 0-2 #/HPF 0-5 UA EPITHELIAL CELLS (test code = EPIU) FEW per HPF FEW UA BACTERIA (test code = BACU) NONE SEEN #/HPF NONE UA HYALINE CAST (test code = HYALU) 11-20 #/LPF 0-5 A UA MUCUS (test code = MUCU) FEW #/LPF FEW Urine Source? Clean CatchDRUGS OF ABUSE SCREEN [id number] 21:23:00* Test Item Value Reference Range Interpretation Comments URN COCAINE (test code = COCAURN) <300 ng/mL URN CANNABINOIDS (test code = CANNABURN) <50 ng/mL URN AMPHETAMINE (test code = AMPHETURN) <1000 ng/mL URN BARBITURATE (test code = BARBITURN) <200 ng/mL URN BENZODIAZEPINE (test code = BENZOURN) <200 ng/mL URN OPIATES (test code = OPIATURN) <300 ng/mL URN PHENCYCLIDINE (PCP) (test code = PHENCURN) <25 ng/ mL URN METHADONE (test code = METHAURN) <300 ng/mL Urine Source? Clean CatchCREATINE KINASE (CK)2020-02-10 20:14:00* Test Item Value Reference Range Interpretation Comments CREATINE KINASE (CK) (test code = CK) 106 IUnit/L 26-208 N BASIC METABOLIC [id number] 20:14:00* Test Item Value Reference Range Interpretation Comments SODIUM (test code = NA) 138 mmol/L 136-145 N POTASSIUM (test code = K) 4.1 mmol/L 3.5-5.1 N CHLORIDE (test code = CL) 99.0 mmol/L 98-107 N CARBON DIOXIDE (test code = CO2) 26.0 mmol/L 21-32 N ANION GAP (test code = GAP) 17.1 10-20 N GLUCOSE (test code = GLU) 98 mg/dL 74-106 N BLOOD UREA NITROGEN (test code = BUN) 9 mg/dL 7-18 N GLOMERULAR FILTRATION RATE (test code = GFR) > 60 mL/min >=60 Estimated GFR by using Modified MDRD formula.Chronic kidney disease is defined as either kidney damageor GFR <60 mL/min/1.73 m2 for >3 months. CREATININE (test code = CREAT) 0.80 mg/dL 0.55-1.02 N Note change in reference range due to change in reagent. BUN/CREATININE RATIO (test code = BUN/CREA) 11.3 10-20 N CALCIUM (test code = CA) 9.7 mg/dL 8.5-10.1 N HEPATIC FUNCTION [id number] 20:14:00* Test Item Value Reference Range Interpretation Comments TOTAL PROTEIN (test code = PROT) 8.4 gram/dL 6.4-8.2 H ALBUMIN (test code = ALB) 4.5 g/dL 3.4-5.0 N GLOBULIN (test code = GLOB) 3.9 gram/dL 2.7-4.2 N ALBUMIN/GLOBULIN RATIO (test code = A/G) 1.2 0.75-1.50 N BILIRUBIN TOTAL (test code = BILT) 1.10 mg/dL 0.0-1.0 H BILIRUBIN DIRECT (test code = BILD) 0.32 mg/dL 0.0-0.20 H SGOT/AST (test code = AST) 20 IUnit/L 15-37 N SGPT/ALT (test code = ALT) 36 IUnit/L 12-78 N ALKALINE PHOSPHATASE TOTAL (test code = ALKP) 106 IUnit/L 45-117 N Note change in reference range due to change in reagent. HCG SERUM [id number] 20:14:00* Test Item Value Reference Range Interpretation Comments HCG SERUM QUAL (test code = HCGQL) NEGATIVE NEGATIVE This HCGQL test is NOT applicable for MALE patients.Check with nurse about probable order error.If Tumor Marker Test needed, nurse should order test "HCGTU"(Test #[id number]) [id number] 20:14:00* Test Item Value Reference Range Interpretation Comments ALCOHOL (test code = ALC) < 3 mg/dL 0.0-3.0 N -- INTERPRETIVE DATA NOTE: POSITIVE SCREENING RESULTS SHOULD BE CONSIDERED PRESUMPTIVE.WHEN COLLECTED FOR MEDICAL PURPOSES ONLY. SPECIMEN WILL NOTBE COLLECTED BY CHAIN OF CUSTODY.IF A CONFIRMATION OF POSITIVE RESULTS IS DESIRED, ACONFIRMATION TEST MUST BE REQUESTED BY THE PHYSICIAN AT ANADDITIONAL CHARGE TO THE PATIENT. BASIC METABOLIC [id number] 20:07:00* Test Item Value Reference Range Interpretation Comments SODIUM (test code = NA) 138 mmol/L 136-145 N POTASSIUM (test code = K) 4.1 mmol/L 3.5-5.1 N CHLORIDE (test code = CL) 99.0 mmol/L 98-107 N CARBON DIOXIDE (test code = CO2) mmol/L 21-32 ANION GAP (test code = GAP) 10-20 GLUCOSE (test code = GLU) mg/dL 74-106 BLOOD UREA NITROGEN (test code = BUN) mg/dL 7-18 GLOMERULAR FILTRATION RATE (test code = GFR) mL/min >=60 CREATININE (test code = CREAT) mg/dL 0.55-1.02 BUN/CREATININE RATIO (test code = BUN/CREA) 10-20 CALCIUM (test code = CA) mg/dL 8.5-10.1 HEPATIC FUNCTION [id number] 20:07:00* Test Item Value Reference Range Interpretation Comments TOTAL PROTEIN (test code = PROT) gram/dL 6.4-8.2 ALBUMIN (test code = ALB) g/dL 3.4-5.0 GLOBULIN (test code = GLOB) gram/dL 2.7-4.2 ALBUMIN/GLOBULIN RATIO (test code = A/G) 0.75-1.50 BILIRUBIN TOTAL (test code = BILT) mg/dL 0.0-1.0 BILIRUBIN DIRECT (test code = BILD) mg/dL 0.0-0.20 SGOT/AST (test code = AST) IUnit/L 15-37 SGPT/ALT (test code = ALT) IUnit/L 12-78 ALKALINE PHOSPHATASE TOTAL (test code = ALKP) IUnit/L 45-117 HCG SERUM [id number] 20:07:00* Test Item Value Reference Range Interpretation Comments HCG SERUM QUAL (test code = HCGQL) NEGATIVE NEGATIVE This HCGQL test is NOT applicable for MALE patients.Check with nurse about probable order error.If Tumor Marker Test needed, nurse should order test "HCGTU"(Test #[id number]) [id number] 20:07:00* Test Item Value Reference Range Interpretation Comments ALCOHOL (test code = ALC) mg/dL 0-3 BASIC METABOLIC [id number] 20:06:00* Test Item Value Reference Range Interpretation Comments SODIUM (test code = NA) mmol/L 136-145 POTASSIUM (test code = K) mmol/L 3.5-5.1 CHLORIDE (test code = CL) mmol/L 98-107 CARBON DIOXIDE (test code = CO2) mmol/L 21-32 ANION GAP (test code = GAP) 10-20 GLUCOSE (test code = GLU) mg/dL 74-106 BLOOD UREA NITROGEN (test code = BUN) mg/dL 7-18 GLOMERULAR FILTRATION RATE (test code = GFR) mL/min >=60 CREATININE (test code = CREAT) mg/dL 0.55-1.02 BUN/CREATININE RATIO (test code = BUN/CREA) 10-20 CALCIUM (test code = CA) mg/dL 8.5-10.1 HEPATIC FUNCTION [id number] 20:06:00* Test Item Value Reference Range Interpretation Comments TOTAL PROTEIN (test code = PROT) gram/dL 6.4-8.2 ALBUMIN (test code = ALB) g/dL 3.4-5.0 GLOBULIN (test code = GLOB) gram/dL 2.7-4.2 ALBUMIN/GLOBULIN RATIO (test code = A/G) 0.75-1.50 BILIRUBIN TOTAL (test code = BILT) mg/dL 0.0-1.0 BILIRUBIN DIRECT (test code = BILD) mg/dL 0.0-0.20 SGOT/AST (test code = AST) IUnit/L 15-37 SGPT/ALT (test code = ALT) IUnit/L 12-78 ALKALINE PHOSPHATASE TOTAL (test code = ALKP) IUnit/L 45-117 HCG SERUM [id number] 20:06:00* Test Item Value Reference Range Interpretation Comments HCG SERUM QUAL (test code = HCGQL) NEGATIVE NEGATIVE This HCGQL test is NOT applicable for MALE patients.Check with nurse about probable order error.If Tumor Marker Test needed, nurse should order test "HCGTU"(Test #[id number]) [id number] 20:06:00* Test Item Value Reference Range Interpretation Comments ALCOHOL (test code = ALC) mg/dL 0-3 CBC W/O [id number] 20:02:00* Test Item Value Reference Range Interpretation Comments WHITE BLOOD CELL (test code = WBC) 19.7 K/mm3 4.5-12.5 H RED BLOOD CELL (test code = RBC) 4.67 mill/mm3 3.7-5.2 N HEMOGLOBIN (test code = HGB) 12.3 gram/dL 11.5-15.5 N HEMATOCRIT (test code = HCT) 37.7 % 36.0-46.0 N MEAN CELL VOLUME (test code = MCV) 80.7 fL 80-98 N MEAN CELL HGB (test code = MCH) 26.3 picogram 27.0-33.0 L MEAN CELL HGB CONCETRATION (test code = MCHC) 32.6 gram/dL 33.0-36. 0 L RED CELL DISTRIBUTION WIDTH (test code = RDW) 19.1 % 11.6-16. 2 H PLATELET COUNT (test code = PLT) 404 K/mm3 150-450 N MEAN PLATELET VOLUME (test code = MPV) 10.1 fL 6.7-11.0 N [[facility]] CBC (INCLUDES DIFF/PLT)2018-02-06 17:06:01* Test Item Value Reference Range Interpretation Comments WBC (test code = 6690-2) 8.9 {K/CMM} 3.7-10.4 RBC; Below Low Threshold (test code = 789-8) 3.98 {M/CMM} 4.20-5.40 Hgb; Below Low Threshold (test code = 718-7) 10.5 g/dl 12.0-16.0 Hct; Below Low Threshold (test code = 09951-0) 32.5 % 36.0-48 .0 MCV (test code = 787-2) 81.6 fL 80.0-98.0 MCH; Below Low Threshold (test code = 785-6) 26.3 pg 27.0-31.0 MCHC (test code = 786-4) 32.2 g/dl 32.0-36.0 RDW (test code = 788-0) 13.7 % 11.5-14.5 Platelet (test code = 02806-1) 165 {K/CMM} 133-450 Mean Platelet Volume; Above High Threshold (test code = 3262 3-1) 11.6 fL 7.4-10.4 [facility]] URINALYSIS, [id number] 17:06:01* Test Item Value Reference Range Interpretation Comments UA Turbidity (test code = 53663-3) Clear Clear UA Spec Grav (test code = 5810-7) 1.018 <=1.030 UA pH (test code = 5803-2) 6.0 5.0-8.0 UA Protein (test code = 01060-7) Negative Negative UA Glucose (test code = 67977-9) Negative Negative UA Ketones (test code = 46220-6) Negative Negative UA Bili (test code = 5770-3) Negative Negative UA Blood (test code = 5794-3) Negative Negative UA Nitrite (test code = 5802-4) Negative Negative UA Leuk Est (test code = 5799-2) Negative Negative UA RBC (test code = 61946-7) <1 0-2 UA WBC (test code = 95721-0) 2 {/HPF} 0-5 UA Mucus (test code = 8247-9) Few None Seen UA Sq Epi (test code = 64459-3) Occasional Few UA Color (test code = 5778-6) Yellow UROBILINOGEN (test code = 38732-2) <=1.0 0.1-1.0 [facility][] HIV AB, HIV 1/2, EIA, WITH [id number] 17:06:01* Test Item Value Reference Range Interpretation Comments HIV Ag/Ab 4th Gen (test code = 17509-1) Negative Negative [facility]] [id number] 17:06:01* Test Item Value Reference Range Interpretation Comments Segmented Neutrophils (test code = 61802-3) 66.1 % 45.0-75.0 Monocytes (test code = 57413-4) 5.6 % 2.0-12.0 Lymphocytes (test code = 57277-4) 27.0 % 20.0-40.0 Eosinophils (test code = 33902-5) 1.0 % 0.0-4.0 Basophils (test code = 706-2) 0.3 % 0.0-1.0 Segs-Bands # (test code = 23686-8) 5.9 {K/CMM} 1.5-8.1 Lymphocytes # (test code = 65791-5) 2.4 {K/CMM} 1.0-5.5 Monocytes # (test code = 31725-5) 0.5 {K/CMM} 0.0-0.8 Eosinophils # (test code = 94993-6) 0.1 {K/CMM} 0.0-0.5 RBC Morphology (test code = RBC Morphology) See Note Plt Morphology (test code = Plt Morphology) Normal [facility][H] Drug Screen Urine (9 Drugs)2018-02-06 17:06:01 * Test Item Value Reference Range Interpretation Comments U Amph Scr (test code = 3349-8) Negative Negative Urine Barbiturate Screen (test code = 3377-9) Negative Negative Urine Benzodiazepine Screen (test code = 3390-2) Negative Negat tawanda Urine Cannabinoid Screen (test code = 3427-2) Negative Negative Urine Cocaine Screen (test code = 3397-7) Negative Negative Urine Methadone Screen (test code = 3773-9) Negative Negative Urine Opiate Screen (test code = 3879-4) Negative Negative Urine Phencyclidine Screen (test code = 3936-2) Negative Negati ve Urine Propoxyphene Screen (test code = 81849-1) Negative Negati ve Urine Drug Screen Note (test code = Urine Drug Screen Note) See Not e Drugs reported as positive have not been confirmed by a secondmethod and should be used for medical purposes only. To orderconfirmation, contact laboratory.note: Below are cut-off concentrations for all urine drugs ofabuse performed in the laboratory. Some drugs listed in the tablemay not be included in this panel.Description Cut-off concentration Amphetamine 1000 ng/mLBarbiturates 200 ng/mLBenzodiazepines 200 ng/mLCocaine metabolites 300 ng/mLOpiates 300 ng/mLPhencyclidine 25 ng/mLPropoxyphene 300 ng/mLMarijuana metabolites 50 ng/mLMethadone 300 ng/mLUrine alcohol 20 mg/dL [facility]] [id number] 17:06:01* Test Item Value Reference Range Interpretation Comments RPR (test code = 15327-6) Non Reactive Non Reactive [facility][H] Hemoglobin Electrophoresis and Interpretation 2018-02-06 17:06:01* Test Item Value Reference Range Interpretation Comments Hgb A % (test code = 4546-8) 97.8 % 95.8-97.8 Hgb A2 % (test code = 4552-6) 2.2 % 2.2-3.2 Hgb F % (test code = 57369-0) 0.0 % 0.0-1.0 Hgb S % (test code = 27092-8) 0.0 % 0.0-0.0 Hgb C % (test code = 50526-8) 0.0 % 0.0-0.0 Hemoglobin Electrophoresis Interpretation (test code = 67663-9) SEE NOTES Hemoglobin electrophoresis interpretationNo abnormal hemoglobins are detected.This is a normal hemoglobin electrophoresis pattern.The electronic medicalrecord has been reviewed for relevant medical information.I have personallyreviewed the test results and concur with the resident's interpretation.CPT:[id number] Signature Gurvinder Garcia MD 02/08/18 8:09 PM [facility]] CULTURE, URINE, [id number] 17:06:01* Test Item Value Reference Range Interpretation Comments FINAL REPORT (test code = FINAL REPORT) No Growth [facility][] STREPTOCOCCUS, GROUP B CULTURE (Genital Strep Screen)2018-02-06 17:06:01* Test Item Value Reference Range Interpretation Comments FINAL REPORT (test code = FINAL REPORT) No Beta-Hemolytic St reptococci Isolated [facility]. [facility] - GC/[id number] 00:00:00* Test Item Value Reference Range Interpretation Comments GC/Chlamydia REPORT (test code = GC/Chlamydia REPORT) See Comment [facility]. [facility] - Affirm VPIII (BV Panel)2018-01-10 00:00:00* Test Item Value Reference Range Interpretation Comments Affirm VPIII (BV Panel) REPORT (test code = Affirm VPI II (BV Panel) REPORT) See Comment [facility]
== END 2020-10-12 18:51 | disposition home or self-care (01) ==
LOC: FSED 18:15
DX: J03.90 Acute tonsillitis, unspecified (principal); R51.9 Headache, unspecified; O99.333 Smoking (tobacco) complicating pregnancy, third trimester
CPT/HCPCS: 99283

== ENCOUNTER 2020-11-13 12:37 | Emergency (ER) | payer OTHER ==
[~2020-11-13] VITALS: Ht 154.9 cm; Wt 67.6 kg
[~2020-11-13 12:37] MED LIST: AUGMENTIN 500-1 EACH PO
== END 2020-11-13 13:17 | disposition home or self-care (01) ==
LOC: ER 13:17
DX: N94.10 Unspecified dyspareunia (principal); N93.9 Abnormal uterine and vaginal bleeding, unspecified; Z33.1 Pregnant state, incidental
CPT/HCPCS: 99282

== ENCOUNTER 2021-03-02 07:30 | Emergency (ER) | payer OTHER ==
[~2021-03-02] VITALS: Ht 154.9 cm; Wt 70.9 kg
[2021-03-02] MEDS ORDERED: SODIUM CHLORIDE 0.9% 1000ML 1,000 ML IV STA (07:44)
[2021-03-02] MEDS ORDERED: CEFTRIAXONE SOD 1 GM VIAL IV ONE (07:45)
[2021-03-02] MEDS ORDERED: ACETAMINOPHEN 325 MG TAB PO ONE (07:45)
[2021-03-02] MEDS ORDERED: DEXAMETHASONE SOD PHOS INJ 4 MG/ML VIAL IV ONE (07:45)
[2021-03-02] MEDS ORDERED: KETOROLAC TROMETHAMINE 30 MG/ML VIAL IV ONE (07:45)
[2021-03-02] MEDS ORDERED: TYLENOL # 31 EA PO (07:51)
[2021-03-02] MEDS ORDERED: IBUPROFEN IB200 MG PO (07:51)
[2021-03-02] MEDS ORDERED: CEFDINIR300 MG PO (07:51)
[2021-03-02] MEDS ORDERED: DEXAMETHASONE SOD PHOS INJ 4 MG/ML VIAL ONE (08:00)
[2021-03-02] MEDS ORDERED: ACETAMINOPHEN 325 MG/10 ML UDC ONE (08:00)
[2021-03-02] MEDS ORDERED: CEFTRIAXONE SOD 1 GM 50 ML IV ONE (08:01)
[2021-03-02] MEDS ORDERED: SODIUM CHLORIDE 0.9% 1000ML 1,000 ML ONE (08:01)
[2021-03-02] MEDS ORDERED: CEFTRIAXONE SOD 1 GM in SODIUM CHLORIDE 0.9% 50ML 50 ML IV ONE (08:15)
[2021-03-02 11:02] VITALS: BP 111/78
== END 2021-03-02 09:00 | disposition home or self-care (01) ==
LOC: FSED 07:52
DX: J03.90 Acute tonsillitis, unspecified (principal); Z33.1 Pregnant state, incidental
CPT/HCPCS: 80053; 83518; 85025; 96374; 96375; 99283; J0696; J1100; J1885; J7030

== ENCOUNTER 2021-03-17 09:34 | Emergency (ER) | payer OTHER ==
[~2021-03-17] VITALS: Ht 154.9 cm; Wt 70.8 kg
[~2021-03-17 09:34] MED LIST changes: +CEFDINIR300 MG PO; +IBUPROFEN IB200 MG PO; +TYLENOL # 31 EA PO
[2021-03-17] MEDS ORDERED: AMOXICILLIN500 MG PO (10:12)
[2021-03-17] MEDS ORDERED: PREDNISONE20 MG PO (10:12)
[2021-03-17] MEDS ORDERED: IBUPROFEN IB200 MG PO (10:12)
[2021-03-17] MEDS ORDERED: DIPHENHYDRAMINE25 MG PO (10:12)
== END 2021-03-17 10:38 | disposition home or self-care (01) ==
LOC: FSED 10:10
DX: J35.3 Hypertrophy of tonsils with hypertrophy of adenoids (principal); Z33.1 Pregnant state, incidental
CPT/HCPCS: 99282

== ENCOUNTER 2021-06-14 01:32 | Emergency (ER) | payer OTHER ==
[~2021-06-14] VITALS: Ht 154.9 cm; Wt 75.3 kg
[~2021-06-14 01:32] MED LIST changes: +AMOXICILLIN500 MG PO; +DIPHENHYDRAMINE25 MG PO; +PREDNISONE20 MG PO
[2021-06-14] MEDS ORDERED: KETOROLAC TROMETHAMINE 30 MG/ML VIAL IV STA (01:37)
[2021-06-14] MEDS ORDERED: DIPHENHYDRAMINE HCL 25 MG CAP PO ONE (01:45)
[2021-06-14] MEDS ORDERED: SODIUM CHLORIDE 0.9% 1000ML 1,000 ML IV SCH (01:45)
[2021-06-14] MEDS ORDERED: METOCLOPRAMIDE HCL 10 MG/2ML VIAL IV ONE (01:45)
[2021-06-14] MEDS ORDERED: DIPHENHYDRAMINE HCL 25 MG CAP ONE (02:13)
[2021-06-14] MEDS ORDERED: KETOROLAC TROMETHAMINE 30 MG/ML VIAL ONE (02:14)
[2021-06-14] MEDS ORDERED: METOCLOPRAMIDE HCL 10 MG/2ML VIAL ONE (02:14)
[2021-06-14] MEDS ORDERED: SODIUM CHLORIDE 0.9% 1000ML 1,000 ML ONE (02:14)
[2021-06-14 02:40] VITALS: BP 124/71
== END 2021-06-14 02:40 | disposition home or self-care (01) ==
LOC: FSED 01:37
DX: O26.893 Other specified pregnancy related conditions, third trimester (principal); R51.9 Headache, unspecified
CPT/HCPCS: 96374; 96375; 96376; 99283; J1885; J2765; J7030

== ENCOUNTER 2022-02-07 22:20 | Emergency (ER) | payer OTHER ==
[~2022-02-07] VITALS: Ht 154.9 cm; Wt 75.3 kg
[2022-02-07] MEDS ORDERED: HALOPERIDOL LACTATE 5 MG/ML VIAL IM ONE (23:00)
[2022-02-08 00:55] VITALS: BP 124/90
== END 2022-02-08 00:56 | disposition home or self-care (01) ==
LOC: ER 22:47
DX: F41.9 Anxiety disorder, unspecified (principal); R07.89 Other chest pain; R11.0 Nausea; R20.2 Paresthesia of skin; R94.31 Abnormal electrocardiogram [ECG] [EKG]; O26.93 Pregnancy related conditions, unspecified, third trimester
CPT/HCPCS: 93005; 99284; J1630

== ENCOUNTER 2022-04-05 17:33 | Emergency (ER) | payer OTHER ==
[~2022-04-05] VITALS: Ht 152.4 cm; Wt 74.8 kg
[2022-04-05] MEDS ORDERED: IBUPROFEN 600 MG TAB PO STA (18:11)
[2022-04-05] MEDS ORDERED: NAPROSYN500 MG PO (18:32)
[2022-04-05] MEDS ORDERED: CYCLOBENZAPRINE10 MG PO (18:33)
[2022-04-05] MEDS ORDERED: HYDROXYZINE HCL25 MG PO (18:35)
== END 2022-04-05 20:37 | disposition home or self-care (01) ==
LOC: FSED 18:04
DX: S16.1XXA Strain of muscle, fascia and tendon at neck level, initial encounter (principal); M54.6 Pain in thoracic spine; W01.198A Fall on same level from slipping, tripping and stumbling with subsequent striking against other object, initial encounter; Y92.89 Other specified places as the place of occurrence of the external cause; F41.9 Anxiety disorder, unspecified; F17.210 Nicotine dependence, cigarettes, uncomplicated
CPT/HCPCS: 72040; 72072; 81025; 99283

== ENCOUNTER 2022-05-09 16:28 | Emergency (ER) | payer OTHER ==
[~2022-05-09] VITALS: Ht 167.6 cm; Wt 73.5 kg
[~2022-05-09 16:28] MED LIST changes: +CYCLOBENZAPRINE10 MG PO; +HYDROXYZINE HCL25 MG PO; +NAPROSYN500 MG PO
[2022-05-09] MEDS ORDERED: NAPROSYN500 MG PO (18:06)
[2022-05-09] MEDS ORDERED: ZITHROMAX250 MG PO (18:06)
== END 2022-05-09 18:13 | disposition home or self-care (01) ==
LOC: FSED 16:35
DX: R09.1 Pleurisy (principal); R05.9 Cough, unspecified; Z88.8 Allergy status to other drugs, medicaments and biological substances
CPT/HCPCS: 71045; 93005; 99283

== ENCOUNTER 2022-05-14 19:48 | Emergency (ER) | payer OTHER ==
[~2022-05-14] VITALS: Ht 167.6 cm; Wt 73.5 kg
[~2022-05-14 19:48] MED LIST changes: +ZITHROMAX250 MG PO
[2022-05-14 21:09] LABS: BASOPHILS % 0.3 % (0.0-1.0); EOSINOPHILS # (AUTO) 0.1 (0.0-0.4); EOSINOPHILS % 1.1 % (0.0-6.0); HEMATOCRIT 41.3 % (34.2-44.1); HEMOGLOBIN 13.5 g/dL (12.0-16.0); LYMPHOCYTES # (AUTO) 2.3 (1.0-3.2); LYMPHOCYTES % 24.5 % (18.0-39.1); MEAN CORPUSCULAR HEMOGLOBIN 29.3 pg (28-32); MEAN CORPUSCULAR HGB CONC 32.7 g/dL (31-35); MEAN CORPUSCULAR VOLUME 89.8 fL (81-99); MONOCYTES # (AUTO) 0.4 (0.2-0.8); NEUTROPHILS # (AUTO) 6.6 (2.1-6.9); NEUTROPHILS % 69.9 % (38.7-80.0); PLATELET COUNT 318 x10e3/uL (140-360); RED CELL DISTRIBUTION WIDTH 12.4 % (11.7-14.4)
[2022-05-14 21:10] LABS: CLARITY,URINE SL CLOUDY (CLEAR); COLOR,URINE STRAW (YELLOW); KETONES,URINE NEGATIVE (NEGATIVE); LEUKOCYTE ESTERASE ,URINE NEGATIVE (NEGATIVE); NITRITE,URINE NEGATIVE (NEGATIVE); PROTEIN,URINE DIPSTICK NEGATIVE (NEGATIVE); URINE UROBILINOGEN 1 mg/dL (0.2 - 1)
[2022-05-14 21:20] LABS: BACTERIA,URINE MODERATE /HPF; EPITHELIAL CELLS,URINE MODERATE /LPF
[2022-05-14 21:21] LABS: CALCIUM OXALATE CRYSTALS,UR MODERATE (FEW)
[2022-05-14] MEDS ORDERED: CIPRO500 MG PO (21:40)
== END 2022-05-14 22:49 | disposition home or self-care (01) ==
LOC: ER 20:04
DX: N93.8 Other specified abnormal uterine and vaginal bleeding (principal); N39.0 Urinary tract infection, site not specified; R10.30 Lower abdominal pain, unspecified; F41.9 Anxiety disorder, unspecified
CPT/HCPCS: 36415; 81001; 81025; 84702; 85025; 99283

== ENCOUNTER 2023-05-02 18:19 | Emergency (ER) | payer SELFPAY ==
[~2023-05-02] VITALS: Ht 167.6 cm; Wt 73.5 kg
[~2023-05-02 18:19] MED LIST changes: +CIPRO500 MG PO
[2023-05-02 20:13] VITALS: O2SAT 97
== END 2023-05-02 20:30 | disposition home or self-care (01) ==
LOC: FSED 19:28
DX: O99.342 Other mental disorders complicating pregnancy, second trimester (principal)
CPT/HCPCS: 99282

== ENCOUNTER 2024-08-07 12:51 | Emergency (ER) | payer OTHER ==
[~2024-08-07] VITALS: Ht 152.4 cm; Wt 81.6 kg
[~2024-08-07 12:51] MED LIST changes: +AMOX TR-K CLV1 EAC2 PO
[2024-08-07 13:04] VITALS: TEMP 98.4
[2024-08-07] MEDS: SODIUM CHLORIDE 0.9% 1000ML 1,000 ML IV STA (13:43)
[2024-08-07 14:50] VITALS: PULSE 57; RESP 18; O2SAT 99
== END 2024-08-07 14:50 | disposition home or self-care (01) ==
LOC: FSED 12:54
DX: R00.2 Palpitations (principal); R53.1 Weakness; F41.9 Anxiety disorder, unspecified
CPT/HCPCS: 71046; 80053; 80307; 81003; 81025; 84484; 85025; 85379; 93005; 99284; J7030

== ENCOUNTER 2025-05-16 21:40 | Emergency (ER) | payer SELFPAY ==
[~2025-05-16] VITALS: Ht 152.4 cm; Wt 79.4 kg
[2025-05-16 22:08] VITALS: PULSE 76; RESP 18; TEMP 98.5
[2025-05-16] MEDS ORDERED: IBUPROFEN800 MG PO (22:19)
[2025-05-16] MEDS: IBUPROFEN 400 MG TAB PO ONE (22:32)
[2025-05-16] MEDS: ACETAMINOPHEN 325 MG TAB PO ONE (22:33)
[2025-05-16 22:38] VITALS: BP 109/73; PULSE 76; RESP 18; TEMP 98.5; O2SAT 97
== END 2025-05-16 22:37 | disposition home or self-care (01) ==
LOC: FSED 21:53
DX: H92.01 Otalgia, right ear (principal); R51.9 Headache, unspecified; E11.9 Type 2 diabetes mellitus without complications
CPT/HCPCS: 99283